=== PATIENT | female | born 1955 | race Caucasian/White ===

== ENCOUNTER 2016-12-31 22:51 | Emergency (ER) | payer OTHER | END 2017-01-01 00:10 | disposition home or self-care (01) | LOC: ER 22:51 | DX: M23.91 Unspecified internal derangement of right knee (principal); E11.9 Type 2 diabetes mellitus without complications; I10 Essential (primary) hypertension; E78.00 Pure hypercholesterolemia, unspecified; F17.210 Nicotine dependence, cigarettes, uncomplicated; Z90.49 Acquired absence of other specified parts of digestive tract; Z88.8 Allergy status to other drugs, medicaments and biological substances; Z88.2 Allergy status to sulfonamides; Z79.899 Other long term (current) drug therapy; Z79.84 Long term (current) use of oral hypoglycemic drugs ==

== ENCOUNTER 2017-02-08 19:48 | Emergency (ER) | payer OTHER | END 2017-02-08 20:30 | disposition home or self-care (01) | LOC: ER 19:48 | DX: K02.9 Dental caries, unspecified (principal); I10 Essential (primary) hypertension; E11.9 Type 2 diabetes mellitus without complications; E78.00 Pure hypercholesterolemia, unspecified; J44.9 Chronic obstructive pulmonary disease, unspecified; E07.9 Disorder of thyroid, unspecified; F17.210 Nicotine dependence, cigarettes, uncomplicated ==